=== PATIENT | female | born 1980 | race Caucasian/White ===

== ENCOUNTER 2022-01-31 14:51 | Emergency (ER) | payer MEDICARE, OTHER ==
[2022-01-31 16:14] LABS: HEMOGLOBIN 14.6 gm/dl (12.3-15.3); RED BLOOD COUNT 4.5 M/UL (4.00-5.10); WHITE BLOOD COUNT 9.4 K/UL (4.5-11.0)
[2022-01-31 16:32] LABS: BUN/CREATININE RATIO 23 (0-10)
[2022-01-31] MEDS ORDERED: DEPAKOTE500 MG PO (17:01)
[2022-01-31] MEDS ORDERED: BACTRIM DS TAB1 EACH PO (17:01)
== END 2022-01-31 17:20 | disposition home or self-care (01) ==
LOC: ER1 14:51
PROVIDERS: Emergency Medicine
DX: R56.9 Unspecified convulsions (principal); S01.81XA Laceration without foreign body of other part of head, initial encounter; N39.0 Urinary tract infection, site not specified; Z88.5 Allergy status to narcotic agent; Z88.8 Allergy status to other drugs, medicaments and biological substances; W01.10XA Fall on same level from slipping, tripping and stumbling with subsequent striking against unspecified object, initial encounter; Y92.22 Religious institution as the place of occurrence of the external cause
CPT/HCPCS: 70450; 72125; 80048; 81001; 84703; 85025; 90715; 93005; 99284